=== PATIENT | male | born 1960 | race Caucasian/White ===

== ENCOUNTER → 2018-03-21 | Outpatient (CLI) | payer BC, OTHER ==
--- NOTE | 2018-03-21 12:50 | XR ---
Right wrist HISTORY: Trauma and pain 3 views of the right wrist Distal metaphyseal radial fracture is present with slight dorsal angulation. There is no dislocation. There may be callus formation or comminution present. There is associated soft tissue swelling prese nt. Punctate 1 mm fragment present dorsal to the carpal row may represent triquetral fracture. IMPRESSION: Distal right radial fracture. Possible triquetral fracture.
--- NOTE | 2018-03-21 12:51 | XR ---
Right shoulder HISTORY: Trauma and pain 3 views of the right shoulder No comparisons Bone mineralization, joint spaces and alignment are maintained. Mild arthropathy and the right should er. Right lung apex as visualized is normal. IMPRESSION: No fracture or dislocation.
== END | disposition home or self-care (01) ==
LOC: RADXRYALE 08:45
PROVIDERS: ATTEND Physician Assistant
DX: S52.501A Unspecified fracture of the lower end of right radius, initial encounter for closed fracture (principal); M25.511 Pain in right shoulder